=== PATIENT | male | born 1995 | race Caucasian/White ===

== ENCOUNTER 2019-01-21 01:15 | Emergency (ER) | payer SELFPAY ==
[2019-01-21] MEDS ORDERED: Lidocaine 1% (PF) 30 ML VIAL ONE ×2 (01:31→01:38)
[2019-01-21] MEDS ORDERED: Bacitracin Zinc 1 Packet ONE (03:12)
== END 2019-01-21 03:26 | disposition home or self-care (01) ==
LOC: ERS 01:15
DX: S01.21XA Laceration without foreign body of nose, initial encounter (principal); W25.XXXA Contact with sharp glass, initial encounter
CPT/HCPCS: 12013; J2001